=== PATIENT | female | born 1970 | race Caucasian/White ===

== ENCOUNTER 2024-05-28 14:13 | Emergency (ER) | payer MEDICARE, SELFPAY ==
[2024-05-28] MEDS ORDERED: levETIRAcetam 500 MG (5 mL) VIAL ONE (14:40)
[2024-05-28 15:12] LABS: #Basophils 0.04 10x3/uL (0.0-0.2); %Basophils 0.4 % (0.0-1.0); %Eosinophils 0.5 % (0.0-10.0); %Lymphocytes 10.8 % (21.0-51.0); %Monocytes 3.9 % (0.0-10.0); %Neutrophils 83.9 % (42.0-75.0); Hematocrit 36.6 % (36.0-47.0); Hemoglobin 10.1 g/dL (12.0-16.0); Mean Corpuscular HGB CONC 27.6 g/dL (32.0-36.0); Mean Corpuscular Hemoglobin 17.2 pg (27.0-31.0); Mean Corpuscular Volume 62.2 fL (78.0-98.0); Platelet Count 265 10x3/uL (130-400); RBC Distribution Width 22.4 % (11.5-14.5); Red Blood Cell (RBC) Count 5.88 mill/uL (4.20-5.40); Reflex for Review?? YES
[2024-05-28 15:15] LABS: Anion Gap 12 mmol/L (10-20); BUN (Urea Nitrogen) 9 mg/dL (9.8-20.1); Calc. Creatinine Clearance 0 mL/min (70-130); Carbon Dioxide 24 mmol/L (22-29); Chloride 108 mmol/L (98-107); Potassium 4.4 mmol/L (3.5-5.1); Sodium 140 mmol/L (136-145)
[2024-05-28 15:16] LABS: ALT (SGPT) 7 U/L (8-55); AST (SGOT) 13 U/L (5-34); Albumin 3.6 g/dL (3.5-5.0); Alkaline Phosphatase 132 U/L (40-110); Bilirubin, Total 0.3 mg/dL (0.2-1.2); Calcium 8.8 mg/dL (7.8-10.44); Estimated GFR 83; Globulin 3.8 g/dL (2.4-3.5); Glucose 124 mg/dL (70-105); Protein, Total 7.4 g/dL (6.0-8.3)
[2024-05-28 15:18] LABS: Troponin I Less than 0.010 ng/mL (< 0.028)
[2024-05-28 15:25] LABS: Anisocytosis MODERATE=16-30 cells HPF (0-5); Hypochromia SLIGHT = 6-15 cells HPF (0-5); Microcytosis SLIGHT = 6-15 cells HPF (0-5); Ovalocytes SLIGHT = 2-5 cells HPF (0-1); Platelet Adequacy Comment Platelets Normal; Polychromasia SLIGHT = 2-3 cells HPF (0-2); Target Cells SLIGHT = 2-5 cells HPF (0-1)
== END 2024-05-28 18:52 | disposition home or self-care (01) ==
LOC: ERS 14:13
DX: R56.9 Unspecified convulsions (principal)
CPT/HCPCS: 70450; 80053; 84484; 85025; 93005; 96374; 99285; J1953; 36415; 85060

== ENCOUNTER 2024-06-06 09:49 | Outpatient (CLI) | payer MEDICARE | END 2024-06-06 09:50 | disposition home or self-care (01) | LOC: SCSMRI 09:49 | PROVIDERS: ATTEND Neurological Surgery | DX: D32.9 Benign neoplasm of meninges, unspecified (principal); G93.89 Other specified disorders of brain; J34.89 Other specified disorders of nose and nasal sinuses; Z98.890 Other specified postprocedural states | CPT/HCPCS: 70553; 76376 ==